=== PATIENT | female | born 1990 | race Hispanic/Latino ===

== ENCOUNTER 2020-02-11 11:26 | Emergency (ER) | payer OTHER ==
[2020-02-11] MEDS ORDERED: NA CHLORIDE 0.9% 1,000 ML ONE (11:45)
[2020-02-11 11:51] LABS: Absolute Lymphocytes (CBC) 2.2 K/uL (0.7-4.9); Basophils % 0.7 % (0-1.3); Lymphocytes % 38.3 % (15.3-44.8); MPV 7.8 fL (7.6-11.3); RBC Red Blood Cell Count 4.23 M/uL (3.86-4.86)
[2020-02-11 12:00] LABS: Protime INR 0.86
[2020-02-11 12:14] LABS: ALT/SGPT 43 U/L (12-78); AST/SGOT 22 U/L (15-37); Albumin 3.2 g/dL (3.4-5.0); Alkaline Phosphatase 75 U/L (45-117); BUN Blood Urea Nitrogen 11 mg/dL (7-18); Bicarbonate 25 mmol/L (21-32); Bilirubin Direct < 0.1 mg/dL (0-0.2); Bilirubin Total 0.1 mg/dL (0.2-1.0); Glucose Level 142 mg/dL (74-106); Protein, Total 7.1 g/dL (6.4-8.2); Sodium Level 140 mmol/L (136-145)
[2020-02-11 12:34] LABS: Urine Blood 3+ (NEG); Urine Glucose 1+ (NEG); Urine Protein 2+ (NEG); Urine pH 5.5 (5.0-7.0)
--- NOTE | 2020-02-11 12:38 | EDPHYS ---
Physician Documentation [facility] – [place], [place] Name: Nikole Lopez Age: 29 yrs Sex: Female : 1990 Arrival Date: 02/11/2020 Time: 11:27 Bed 6 Private MD: ED Physician Srinivasan Magana HPI: 02/10 11:37 This 29 yrs old Female presents to ER via EMS with complaints of Syncope. katie 11:37 The patient has experienced near-syncope. Onset: The symptoms/episode began/occurred katie just prior to arrival. Duration: This was a single episode. Context: the episode(s) was witnessed, by a bystander. Associated injury: The patient did not suffer any apparent associated injury. Associated signs and symptoms: Pertinent positives: dizziness. Current symptoms: Currently, the patient is not experiencing any symptoms. The patient has not experienced similar symptoms in the past. OBIEE ARCHITECT: 11:34 LMP 02/11/2020 jl7 Historical: - Allergies: 11:34 No Known Allergies; jl7 - Home Meds: 11:34 metformin 500 mg oral tab 2 tabs [Active]; jl7 - PMHx: 11:34 Diabetes - NIDDM; jl7 - Immunization history:: Adult Immunizations unknown. - Social history:: Smoking status: Patient denies any tobacco usage or history of. - Family history:: not pertinent. ROS: 11:37 Constitutional: Negative for fever, chills, and weight loss, Eyes: Negative for injury, katie pain, redness, and discharge, ENT: Negative for injury, pain, and discharge, Neck: Negative for injury, pain, and swelling, Cardiovascular: Negative for chest pain, palpitations, and edema, Respiratory: Negative for shortness of breath, cough, wheezing, and pleuritic chest pain, Abdomen/GI: Negative for abdominal pain, nausea, vomiting, diarrhea, and constipation, Back: Negative for injury and pain, : Negative for injury, bleeding, discharge, and swelling, MS/Extremity: Negative for injury and deformity, Skin: Negative for injury, rash, and discoloration, Psych: Negative for depression, anxiety, suicide ideation, homicidal ideation, and hallucinations, Allergy/Immunology: Negative for hives, rash, and allergies, Endocrine: Negative for neck swelling, polydipsia, polyuria, polyphagia, and marked weight changes, Hematologic/Lymphatic: Negative for swollen nodes, abnormal bleeding, and unusual bruising. 11:37 Neuro: Positive for dizziness, near syncope, weakness. Exam: 11:37 Constitutional: This is a well developed, well nourished patient who is awake, alert, katie and in no acute distress. Head/Face: Normocephalic, atraumatic. Eyes: Pupils equal round and reactive to light, extra-ocular motions intact. Lids and lashes normal. Conjunctiva and sclera are non-icteric and not injected. Cornea within normal limits. Periorbital areas with no swelling, redness, or edema. ENT: Nares patent. No nasal discharge, no septal abnormalities noted. Tympanic membranes are normal and external auditory canals are clear. Oropharynx with no redness, swelling, or masses, exudates, or evidence of obstruction, uvula midline. Mucous membranes moist. Neck: Trachea midline, no thyromegaly or masses palpated, and no cervical lymphadenopathy. Supple, full range of motion without nuchal rigidity, or vertebral point tenderness. No Meningismus. Chest/axilla: Normal chest wall appearance and motion. Nontender with no deformity. No lesions are appreciated. Cardiovascular: Regular rate and rhythm with a normal S1 and S2. No gallops, murmurs, or rubs. Normal PMI, no JVD. No pulse deficits. Respiratory: Lungs have equal breath sounds bilaterally, clear to auscultation and percussion. No rales, rhonchi or wheezes noted. No increased work of breathing, no retractions or nasal flaring. Abdomen/GI: Soft, non-tender, with normal bowel sounds. No distension or tympany. No guarding or rebound. No evidence of tenderness throughout. Back: No spinal tenderness. No costovertebral tenderness. Full range of motion. Female : Normal external genitalia. Skin: Warm, dry with normal turgor. Normal color with no rashes, no lesions, and no evidence of cellulitis. MS/ Extremity: Pulses equal, no cyanosis. Neurovascular intact. Full, normal range of motion. Neuro: Awake and alert, GCS 15, oriented to person, place, time, and situation. Cranial nerves II-XII grossly intact. Motor strength 5/5 in all extremities. Sensory grossly intact. Cerebellar exam normal. Normal gait. Psych: Awake, alert, with orientation to person, place and time. Behavior, mood, and affect are within normal limits. 11:37 Musculoskeletal/extremity: Extremities: all appear grossly normal, with no appreciated pain with palpation, ROM: no acute changes, intact in all extremities, full active range of motion, full passive range of motion, Circulation is intact in all extremities. Sensation intact. Compartment Syndrome exam of affected extremity: is normal. Tendon exam: specific tendon testing normal through active and passive range of motion DVT Exam: No signs of deep vein thrombosis. no pain, no swelling, no tenderness, negative Homans' sign noted on exam, no appreciated bluish discoloration, no erythema, no increased warmth. 11:37 Neuro: Orientation: is normal, appropriate for stated age, no acute changes, Mentation: is normal, appropriate for stated age, no acute changes, Memory: is normal, appropriate for stated age, no acute changes, Cranial nerves: grossly normal, is grossly normal based on the patient's age, no acute changes, Cerebellar function: is grossly normal, is grossly normal based on the patient's age, no acute changes, Motor: moves all fours, Sensation: no obvious gross deficits, appropriate no acute changes, Gait: not applicable seizure activity, is not displayed by the patient. 11:43 ECG was reviewed by the Attending Physician. [facility] 12:09 Neuro: Babinski testing is normal. [facility] Vital Signs: 11:22 BP 85 / 35 LA Supine; Pulse 67; Resp 16 S; Temp 98.2(O); Pulse Ox 100% on R/A; Weight jl7 68.04 kg (R); 11:25 BP 98 / 55 RA Supine; jl7 12:45 BP 104 / 56; Pulse 61; Resp 16; Pulse Ox 100% ; jl7 13:20 BP 103 / 69 Supine; jl7 13:21 BP 109 / 78 Standing; jl7 MDM: 11:30 Patient medically screened. pm1 11:40 Data reviewed: vital signs, nurses notes, lab test result(s), EKG. Data interpreted: [facility] monitoring analyst: rate is 67 beats/min, Pulse oximetry: on room air is 100 %. Test interpretation: by ED physician or midlevel provider: ECG, plain radiologic studies. Counseling: I had a detailed discussion with the patient and/or guardian regarding: the historical points, exam findings, and any diagnostic results supporting the discharge/admit diagnosis, lab results, the need for outpatient follow up, for definitive care. Response to treatment: the patient's symptoms have markedly improved after treatment. 11:46 Differential Diagnosis: cardiac arrhythmia, drug effect, , vasovagal episode. [facility] 11:53 ED course: fells better, will fu, control blood sugars, return to the er if symptoms katie worsen. 02/10 11:37 Order name: Acetaminophen; Complete Time: 12:36 [facility] 02/10 11:37 Order name: Basic Metabolic Panel; Complete Time: 12:36 katie 02/10 11:37 Order name: CBC with Diff; Complete Time: 12:36 katie 02/10 11:37 Order name: ETOH Level; Complete Time: 12:36 [facility] 02/10 11:37 Order name: Hepatic Function; Complete Time: 12:36 katie 02/10 11:37 Order name: PT-INR; Complete Time: 12:36 katie 02/10 11:37 Order name: Urine Test (obtain specimen); Complete Time: 13:12 [facility] 02/10 11:37 Order name: Ptt, Activated; Complete Time: 12:36 katie 02/10 11:37 Order name: Salicylate; Complete Time: 12:36 katie 02/10 11:37 Order name: Urine Drug Screen [facility] 02/10 11:37 Order name: EKG; Complete Time: 11:38 katie 02/10 12:26 Order name: Urine Dipstick--Ancillary (enter results); Complete Time: 12:36 tt3 02/10 12:26 Order name: Urine --Ancillary (enter results); Complete Time: 12:36 tt3 02/10 11:37 Order name: EKG - Nurse/Tech; Complete Time: 12:05 katie 02/10 11:37 Order name: IV Saline Lock; Complete Time: 12:05 katie 02/10 11:37 Order name: Labs collected and sent; Complete Time: 12:05 katie 02/10 11:37 Order name: Urine Dipstick-Ancillary (obtain specimen); Complete Time: 13:12 katie 02/10 12:36 Order name: Orthostatics; Complete Time: 13:21 katie EC:43 Rate is 58 beats/min. Rhythm is regular. QRS [place] is Normal. MA interval is normal. QRS katie interval is normal. QT interval is normal. No Q waves. T waves are Normal. No ST changes noted. Clinical impression: Normal ECG, Sinus bradycardia, and No evidence of ischemia. Interpreted by me. Reviewed by me. Administered Medications: 11:45 Drug: NS 0.9% 1000 ml Route: IV; Rate: 1 bolus; Site: right antecubital; jl7 12:50 Follow up: IV Status: Completed infusion; IV Intake: 1000ml jl7 13:04 Follow up: Response: No adverse reaction; IV Intake: 1000ml jl7 Disposition: 02/11/20 12:37 Discharged to Home. Impression: Syncope and collapse - near, Type 2 diabetes mellitus, Anemia, unspecified. - Condition is Stable. - Discharge Instructions: Anemia, Nonspecific, Type 2 Diabetes Mellitus, Diagnosis, Adult, Near-Syncope, Syncope, Weakness, Near-Syncope, Annk-xf-Wnlu, Syncope, Mvdu-vo-Dvuz, Weakness, Cmfx-ig-Embf, Type 2 Diabetes Mellitus, Diagnosis, Adult, Eupv-ox-Rfir, Vasovagal Syncope, Adult. - Medication Reconciliation Form, Thank You Letter, Antibiotic Education, Prescription Opioid Use form. - Follow up: Private Physician; When: 2 - 3 days; Reason: Recheck today's complaints, Continuance of care, Re-evaluation by your physician. - Problem is new. - Symptoms have improved. Signatures: Dispatcher [employer] EDMS Srinivasan Magana MD MD cha Marinas, Patrick, [employer] pm1 Stuart Solo RN RN jl7 Corrections: (The following items were deleted from the chart) 12:37 12:37 02/11/2020 12:37 Discharged to Home. Impression: Syncope and collapse - near; katie Type 2 diabetes mellitus. Condition is Stable. Discharge Instructions: Type 2 Diabetes Mellitus, Diagnosis, Adult, Near-Syncope, Syncope, Weakness, Near-Syncope, Zuet-qi-Mjkd, Syncope, Fsbz-ux-Tlxr, Weakness, Duhv-yj-Ttjp, Type 2 Diabetes Mellitus, Diagnosis, Adult, Rcvb-yk-Jzte, Vasovagal Syncope, Adult. Forms are Medication Reconciliation Form, Thank You Letter, Antibiotic Education, Prescription Opioid Use. Follow up: Private Physician; When: 2 - 3 days; Reason: Recheck today's complaints, Continuance of care, Re-evaluation by your physician. Problem is new. Symptoms have improved. katie 13:26 12:37 02/11/2020 12:37 Discharged to Home. Impression: Syncope and collapse - near; jl7 Type 2 diabetes mellitus; Anemia, unspecified. Condition is Stable. Discharge Instructions: Type 2 Diabetes Mellitus, Diagnosis, Adult, Near-Syncope, Syncope, Weakness, Near-Syncope, Gtbr-sh-Lvzw, Syncope, Oqrm-zt-Mhew, Weakness, Zlhg-nu-Bmkm, Type 2 Diabetes Mellitus, Diagnosis, Adult, Pemd-mk-Kxln, Vasovagal Syncope, Adult. Forms are Medication Reconciliation Form, Thank You Letter, Antibiotic Education, Prescription Opioid Use. Follow up: Private Physician; When: 2 - 3 days; Reason: Recheck today's complaints, Continuance of care, Re-evaluation by your physician. Problem is new. Symptoms have improved. katie
--- NOTE | 2020-02-11 12:38 | ER ---
Nurse's Notes [facility] Name: Nikole Lopez Age: 29 yrs Sex: Female : 1990 Arrival Date: 02/11/2020 Time: 11:27 Bed 6 Private MD: Diagnosis: Syncope and collapse-near;Type 2 diabetes mellitus;Anemia, unspecified Presentation: 02/10 11:22 Chief complaint: EMS states: syncopal episode while in the bathroom, BP on arrival jl7 100/62, had another episode in route, BP was 36/19 and she lost consciousness. Coronavirus screen: Proceed with normal triage. Patient denies a cough. Patient denies shortness of breath or difficulty breathing. Patient denies measured and/or subjective temperature greater than 100.4F prior to today's visit. Patient denies travel on a cruise ship or to a country the [facility] currently lists as an affected area. Patient denies contact with known and/or suspected case of COVID-19. Ebola Screen: No symptoms or risks identified at this time. 11:22 Method Of Arrival: EMS: [facility] 11:25 Initial Sepsis Screen: Does the patient meet any 2 criteria? Systolic BP < 90 mmHg. jl7 Mean Arterial Pressure (MAP) < 65. Does the patient have a suspected source of infection? No. Patient's initial sepsis screen is negative. Risk Assessment: Do you want to hurt yourself or someone else? Patient reports no desire to harm self or others. Onset of symptoms was February 11, 2020. Care prior to arrival: Glucose check: 120. 11:25 Acuity: DAMIEN 2 jl7 Triage Assessment: 11:34 General: Appears in no apparent distress. uncomfortable, Behavior is calm, cooperative, jl7 appropriate for age. Pain: Denies pain. Neuro: Level of Consciousness is awake, alert, obeys commands, Oriented to person, place, time, situation, Reports a syncopal episode. Cardiovascular: Patient's skin is warm and dry. Respiratory: Airway is patent Respiratory effort is even, unlabored, Respiratory pattern is regular, symmetrical. Derm: Skin is pink, warm \T\ dry. Musculoskeletal: No signs and/or symptoms reported regarding the musculoskeletal system. 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 - Social history:: Smoking status: Patient denies any tobacco usage or history of. - Family history:: not pertinent. Screenin:36 Abuse screen: Denies threats or abuse. Denies injuries from another. Nutritional jl7 screening: No deficits noted. Tuberculosis screening: No symptoms or risk factors identified. Fall Risk No secondary diagnosis (0 pts). IV access (20 points). Ambulatory Aid- None/Bed Rest/Nurse Assist (0 pts). Gait- Weak (10 pts.). Mental Status- Oriented to own ability (0 pts). Assessment: 11:40 General: See triage assessment. jl7 12:40 Reassessment: Patient appears in no apparent distress at this time. Patient and/or jl7 family updated on plan of care and expected duration. Pain level reassessed. Patient is alert, oriented x 3, equal unlabored respirations, skin warm/dry/pink. Patient denies pain at this time. Patient states feeling better. Vital Signs: 11:22 BP 85 / 35 LA Supine; Pulse 67; Resp 16 S; Temp 98.2(O); Pulse Ox 100% on R/A; Weight jl7 68.04 kg (R); 11:25 BP 98 / 55 RA Supine; jl7 12:45 BP 104 / 56; Pulse 61; Resp 16; Pulse Ox 100% ; jl7 13:20 BP 103 / 69 Supine; jl7 13:21 BP 109 / 78 Standing; jl7 ED Course: 11:27 Patient arrived in ED. jl7 11:30 Karri Garcia NP is PHCP. pm1 11:30 Srinivasan Magana MD is Attending Physician. pm1 11:33 Triage completed. jl7 11:34 Arm band placed on right wrist. jl7 11:35 Patient has correct armband on for positive identification. Placed in gown. Bed in low jl7 position. Call light in reach. Side rails up X2. fish net maker on. Pulse ox on. NIBP on. Warm blanket given. 11:35 Inserted saline lock: 20 gauge in right antecubital area, using aseptic technique. jl7 12:05 Solo, Jahala, RN is Primary Nurse. jl7 13:22 No provider procedures requiring assistance completed. IV discontinued, intact, jl7 bleeding controlled, No redness/swelling at site. Pressure dressing applied. Administered Medications: 11:45 Drug: NS 0.9% 1000 ml Route: IV; Rate: 1 bolus; Site: right antecubital; jl7 12:50 Follow up: IV Status: Completed infusion; IV Intake: 1000ml jl7 13:04 Follow up: Response: No adverse reaction; IV Intake: 1000ml jl7 Intake: 12:50 IV: 1000ml; Total: 1000ml. jl7 13:04 IV: 1000ml; Total: 2000ml. jl7 Outcome: 12:37 Discharge ordered by . katie 13:26 Discharged to home ambulatory. jl7 13:26 Condition: stable 13:26 Discharge instructions given to patient, Instructed on discharge instructions, follow up and referral plans. Demonstrated understanding of instructions, follow-up care. 13:26 Patient left the ED. jl7 Signatures: Srinivasan Magana MD MD cha Marinas, Patrick, DRAW STRING KNOTTER DRAW STRING KNOTTER pm1 Stuart Solo, RN RN jl7
[2020-02-11 12:42] LABS: Barbiturates NEGATIVE (NEGATIVE); Benzodiazepines NEGATIVE (NEGATIVE); Cocaine NEGATIVE (NEGATIVE); METHAMPHETAM NEGATIVE (NEGATIVE); Methadone NEGATIVE (NEGATIVE); Opiates NEGATIVE (NEGATIVE); Phencyclidine NEGATIVE (NEGATIVE); THC Cannibis NEGATIVE (NEGATIVE)
[2020-02-11 13:35] VITALS: O2SAT 100
[2020-02-11 13:37] VITALS: BP 109/78
--- NOTE | 2020-02-12 18:48 | EKG ---
Test Date: 2020-02-11 Test Time: 11:37:56 Health And Wellness Sales Consultant: DUANE MEASUREMENT RESULTS: Intervals: Rate: 58 DE: 142 QRSD: 80 QT: 378 QTc: 371 [place]: P: 47 DE: 142 QRS: 82 T: 42 INTERPRETIVE STATEMENTS: Sinus bradycardia with premature atrial complexes Otherwise normal ECG No previous ECG available for comparison Electronically Signed On 02-12-20 18:44:38 CDT by Que Moctezuma
== END 2020-02-11 13:26 | disposition home or self-care (01) ==
LOC: ER 11:26
DX: R55 Syncope and collapse (principal); E11.9 Type 2 diabetes mellitus without complications; D64.9 Anemia, unspecified
CPT/HCPCS: 93005; 85025; 80048; 36415; 80320; 80329 ×2; 81025; 85610; 80076; 80307 ×8; 85730; 81003; 96360; 99284; J7030

== ENCOUNTER 2020-02-23 11:18 | Emergency (ER) | payer OTHER ==
--- OUTSIDE RECORDS SUMMARY | 2020-02-23 11:30 | XMS REPORT | Clinical Summary ---
:1990 Author Organization [facility] [facility] Address [address] [place] [id number] Care Team Providers Name Role Phone Robbie Almaguer MD Primary Care Provider Allergies No Known Allergies Medications Not on file Active Problems Not on file Social History Tobacco Use Types Packs/Day Years Used Date Current Every Day Smoker Cigarettes 1 Smokeless Tobacco: Never Used Alcohol Use Drinks/Week oz/Week Comments Yes occasionally Sex Assigned at Date Recorded Not on file Job Start Date Occupation Industry Not on file Not on file Not on file Travel History Travel Start Travel End No recent travel history available. 

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
--- OUTSIDE RECORDS SUMMARY | 2020-02-23 11:32 | XMS REPORT ---
:1990 Author Organization [facility] t Address [address] [place] [address] Care Team Providers Name Role Phone Robbie Almaguer MD Primary Care Physician Problems Condition Condition Condition Status Onset Resolution Last Treating Co mments Source Name Details Category Date Date Treatment Clinician Date Candidiasi Candidiasi Problem Active 2019-0 [facility] s of s of 2-04 da vagina Vagina 00:00: Medical 00 Group Type II Type II Problem Active 0 [place] diabetes Diabetes 2-04 da mellitus Mellitus 00:00: Medica l uncontroll Uncontroll 00 Gr oup ed ed Staphyloco Staphyloco Problem Active 2019-0 [facility] ccal ccal 2-04 da infection Infection 00:00: Medi nuno of skin of Skin 00 Group Depressive Depressive Problem Active 2019-0 [facility] disorder Disorder 1-15 da 00:00: Medical 00 Group Problem Active 2017-10 [facility] depression Depression 0-08 da 00:00: Medical 00 Group Exposure Exposure Problem Active [place] to to 3-21 da tuberculos Tuberculos 00:00: Me dical is is 00 Group Elevated Elevated Problem Active [place] liver Liver 1-30 da enzymes Enzymes 00:00: Medical level Level 00 Group Seizure Seizure Problem Active [place] 4-11 da 00:00: Medical 00 Group Uterine Uterine Problem Active [place] scar from Scar from 3 da previous Previous 00:00: Medica l surgery in Surgery in 00 Gr oup , , childbirth Childbirth and the and the puerperium Puerperium with with problem Problem History of History of Problem Active [facility] migraine Migraine 3 da 00:00: Medical 00 Group History of History of Problem Active [facility] severe Severe 12-10 da pre-eclamp Pre-eclamp 00:00: Me dical constance constance 00 Group LEG Diagnosis Active 2013-02-08 WEAKNESS 4-04 15:06:00 [place] LEG 00:00: Medical WEAKNESS 00 Center Active 01/05/2013 [facility] FELL FROM Diagnosis Active 2013-01-06 STANDING 4-04 16:44:00 [place] HIT HER FELL 00:00: Medical HEAD AT FROM 00 Center [facility] STANDING HIT HER HEAD AT [facility] Active 01/05/2013 [facility] Type 2 Type 2 Problem Active [place] diabetes Diabetes da mellitus Mellitus Medica l Group Polycystic Polycystic Problem Active M [facility] ovaries Ovaries da Medical Group Migraine Migraine Problem Active [place] [facility] Melena Melena Problem Active [facility] Chronic Chronic Problem Active [place] pelvic Pelvic da pain of Pain of Medical female Female Group Syncope Syncope Problem Active [facility] Fatigue Fatigue Problem Active [facility] Poor Poor Problem Active [place] short-term Short-term da memory Memory Medical Group Hyperglyce Hyperglyce Problem Active M [facility] liv liv da Medical Group Dark Dark Problem Active [place] stools Stools da Medical Group Syncope Problem Resolve 2013-01-09 d 21:02:31 [place] [facility] Resolved Problem 01/09/2013 [facility] MALAISE Diagnosis Active 2013-02-08 AND 15:06:00 [place] FATIGUE MALAISE Medica l NEC AND Center FATIGUE NEC Active [facility] Allergies, Adverse Reactions, Alerts This patient has no known allergies or adverse reactions. Social History Social Habit Start Date Stop Date Quantity Comments Source History of tobacco Cigarette Smoker [place] use Jainism Sex Assigned At [place] Jainism Cigarettes smoked 2018-04-24 2018-04-24 [place] current (pack per 00:00:00 00:00:[address] day) - Reported Alcohol intake 2018-04-24 2018-04-24 Current drinker of [place] 00:00:00 00:00:00 alcohol (finding) Methodi [facility] Alcohol Comment 2018-04-24 2018-04-24 occasionally [place] 00:00:00 00:00:00 Jainism Smoking Status Start Date Stop Date Source Current every day smoker 2018-04-24 00:00:00 Lane[place] oliveira Jainism Medications Ordered Filled Start Stop Current Ordering Indication Dosage Frequency Signature Comments Components Source Medication Medication Date Date Medication? Clinician (SIG) Name Name acetaminoph No Alpa 650 mg, [facility] 01-06 Nirmala 20.3 mL, [place] 22:34: Blayne Route: PO, Medic al 00 Drug form: Center LIQ, Q4H, Dosing Weight 86.364, kg, PRN Pain 1-3/Temp > 100.4 F, Start date: 01/06/13 17:34:00, Duration: 30 day, Stop date: 02/05/13 17:33:00 droperidol No Jenna 1.25 mg, 01-06 [place] 0.5 mL, [place] 06:59: Route: Medical 00 IVP, Drug Center form: INJ, ONCE, Dosing Weight 86.364, kg, Start date: 01/06/13 1:59:00, Stop date: 01/06/13 1:59:00 droperidol No Jenna 1.25 mg, -05 [place] Route: [place] 06:40: IVP, ONCE, Medical 00 Dosing Center Weight 86.364, kg, PRN Nausea & Vomiting, Start date: 01/06/13 1:40:00 citalopram citalopram No citalopram [place] 20 mg 20 mg 20 mg da tablet Take tablet Take tablet Medical 1 tablet 1 tablet Take 1 Group every day every day tablet by oral by oral every day route. route. by oral route. Estarylla Estarylla No Estarylla [place] 0.25 mg-35 0.25 mg-35 0.25 mg-35 da mcg tablet mcg tablet mcg tablet Medical Take 1 Take 1 Take 1 Group tablet tablet tablet every day every day every day by oral by oral by oral route. route. route. metformin metformin No metformin [place] ER 500 mg ER 500 mg ER 500 mg da tablet,exte tablet,exte tablet,ext Medical nded nded ended Group release 24 release 24 release 24 hr Take 2 hr Take 2 hr Take 2 tablets tablets tablets every day every day every day by oral by oral by oral route for route for route for 30 days. 30 days. 30 days. topiramate topiramate No topiramate [place] 25 mg 25 mg 25 mg da tablet Take tablet Take tablet Medical 1 tablet 1 tablet Take 1 Group every day every day tablet by oral by oral every day route. route. by oral route. True Metrix True Metrix No True M [facility] Glucose Glucose Metrix da Meter Meter Glucose Medical Meter Group True Metrix True Metrix No True M [facility] Glucose Glucose Metrix da Test Strip Test Strip Glucose Medical USE TO TEST USE TO TEST Test Strip Group TWICE DAILY TWICE DAILY USE TO TEST TWICE DIRECTED. DIRECTED. DAILY DIRECTED. Immunizations Ordered Immunization Filled Immunization Date Status Commen ts Source Name Name influenza, influenza, 2018-07-11 Completed [place] recombinant, recombinant, 13:06:00 Medical Gr oup quadrIvalent,injecta quadrIvalent,inject ble, preservative able, preservative free free Vital Signs Vital Name Observation Time Observation Value Comments Source BP Diastolic 2019-12-12 00:00:00 84 mm[Hg] [facility] Height 2019-12-12 00:00:00 62 [in_i] [facility] BMI (Body Mass 2019-12-12 00:00:00 28.5 kg/m2 [facility] Medical Index) Group BP Systolic 2019-12-12 00:00:00 118 mm[Hg] [facility] Body Weight 2019-12-12 00:00:00 2496 [oz_av] [facility] BP Diastolic 2019-11-07 00:00:00 74 mm[Hg] [facility] Height 2019-11-07 00:00:00 62 [in_i] [facility] BMI (Body Mass 2019-11-07 00:00:00 29.1 kg/m2 [facility] Medical Index) Group BP Systolic 2019-11-07 00:00:00 108 mm[Hg] [facility] Body Weight 2019-11-07 00:00:00 2544 [oz_av] [facility] BP Diastolic 2019-11-03 00:00:00 85 mm[Hg] [facility] Height 2019-11-03 00:00:00 62 [in_i] [facility] BMI (Body Mass 2019-11-03 00:00:00 28.9 kg/m2 [facility] Medical Index) Group BP Systolic 2019-11-03 00:00:00 120 mm[Hg] [facility] Body Weight 2019-11-03 00:00:00 2528 [oz_av] [facility] BP Diastolic 2018-10-18 00:00:00 83 mm[Hg] [facility] Height 2018-10-18 00:00:00 62 [in_i] [facility] BMI (Body Mass 2018-10-18 00:00:00 32.4 kg/m2 [facility] Medical Index) Group BP Systolic 2018-10-18 00:00:00 106 mm[Hg] [facility] Body Weight 2018-10-18 00:00:00 177 [lb_av] [facility] Heart Rate 2013-01-07 11:55:00 [facility] Systolic (mm Hg) 2013-01-07 11:55:00 [facility] Respitory Rate 2013-01-07 11:55:00 [facility] Temperature Oral (F) 2013-01-07 11:55:00 97.6 F [facility] Diastolic (mm Hg) 2013-01-07 11:55:00 [facility] Diastolic (mm Hg) 2013-01-07 08:00:00 [facility] Systolic (mm Hg) 2013-01-07 08:00:00 [facility] Respitory Rate 2013-01-07 08:00:00 [facility] Center Temperature Oral (F) 2013-01-07 08:00:00 97.9 F [facility] Heart Rate 2013-01-07 08:00:00 [facility] Temperature Oral (F) 2013-01-07 04:02:00 98.4 F [facility] Diastolic (mm Hg) 2013-01-07 04:02:00 [facility] Systolic (mm Hg) 2013-01-07 04:02:00 [facility] Respitory Rate 2013-01-07 04:02:00 [facility] Heart Rate 2013-01-07 04:02:00 [facility] Weight 2013-01-06 23:20:00 [facility] Height 2013-01-06 23:20:00 157.48 cm [facility] Height 2013-01-06 04:57:00 157.48 cm [facility] Weight 2013-01-06 04:57:00 [facility] Weight 2013-01-06 04:51:00 [facility] Height 2013-01-06 04:51:00 157.48 cm [facility] Procedures Procedure Date / Time Performed Performing Clinician Terry e Caesarean Section 2017-06-22 00:00:00 [facility] Caesarean Section 2012-06-02 00:00:00 [facility] section [facility] Plan of Care Planned Activity Planned Date Details Comments Source Future Scheduled Test 2020-05-04 INFLUENZA VACCINE [facility] Jainism 00:00:00 [code = INFLUENZA VACCINE] Diagnostic Test 2019-12-12 HbA1c (hemoglobin [facility] Pending 00:00:00 A1c), blood [code = Group HbA1c (hemoglobin A1c), blood] Diagnostic Test 2019-12-12 [facility] 00:[facility]:00 [code = microalbumin, Group urine] Diagnostic Test 2019-12-12 CMP, serum or plasma Cherry zenaida Medical Pending 00:00:00 [code = CMP, serum or Group plasma] Future Scheduled Test 2012 Screening for [place] [facility] 00:00:00 malignant neoplasm of cervix (procedure) [code = 364933537] Future Scheduled Test 2001 DIABETIC FOOT EXAM Vamshi Abarca 00:00:00 [code = DIABETIC FOOT EXAM] Future Scheduled Test 2001 URINE MICROALBUMIN Vamshi Jainism 00:00:00 [code = URINE MICROALBUMIN] Future Scheduled Test 1991 DIABETIC RETINAL EYE [facility] Jainism 00:00:00 EXAM [code = DIABETIC RETINAL EYE EXAM] Future Appointment 2020-03-13 Toni Moore [facility] 00:00:[address] [phone] Encounters Start End Encounter Admission Attending Care Care Encounter Source Date/Time Date/Time Type Type Clinicians Facility Department ID 2019-12-12 2019-12-12 Johnny MERCADO [place] - [id number] [place] [facility] 00:00:00 00:00:00 MD Apple: [facility] [address] [place] [phone] , Ph. 2019-11-07 2019-11-07 Johnny Wolfe MM [place] - [id number] [facility] 00:00:00 00:00:00 MD Apple: [facility] [address] [place] [phone] , Ph. 2019-11-03 2019-11-03 Tahmina [facility] [place] - [id number] M [facility] 00:00:00 00:00:00 Beryl Lassiter [facility] Medical ONLINE EDITOR: [address] [place] [phone] , Ph. 2018-10-18 2018-10-18 Tadeo [facility] [place] - [id number] M [facility] 00:00:00 00:00:00 Discovery benson Nicholson MD: [address] [facility] [phone] , Ph. [phone] 2013-01-06 2013-01-07 OU MHIEALT [facility] [id number] MH 16:38:00 12:20:00 Medical 94 [facility] Results Test Description Test Time Test Comments Results Result Sour e Comments CHEST 1 VIEW 2017-02-01 [place] [address] 20:16:00 [place], [place] [address]FYSJERUFVK IMAGING REPORTPatient Name: GERONIMO LIM RDate of Service: [id number]: 25 Sex: F Order #: [id number] Room: REDWOOD LLCB: 1990 X-Ray Number: [id number] Record Number: [id number] Hospital Number: [id number] Physician: CHAS KAMOrdering Physician: DIMA CHAPMAN PORTABLE CHEST:CLINICAL HISTORY:, Cough, fever and congestionTECHNIQUE: One viewFINDINGS: The heart and vascularity are within normal limits and the lungsare clear.The bony thorax is intact.Impression: Normal chestElectronically Signed By: Joselito Adams M.D., 02/16/2017 8:14 PMLegally authenticated by RAJENDRA Wolfe 2017-02-16 20:14:30 CHEMISTRY See Note [facility] [place] 5 3*NA*(01/06/2013 Medical 17:47:55 12:47:55) Center CHEMISTRY Negative [facility] [place] 5 *NA*(01/06/2013 Medical 17:47:55 12:47:55) Center CHEMISTRY Negative [facility] [place] 5 *NA*(01/06/2013 Medical 17:47:55 12:47:55) Center CHEMISTRY Negative MH [place] 5 *NA*(01/06/2013 Medical 17:47:55 12:47:55) Center CHEMISTRY Negative MH [place] 5 *NA*(01/06/2013 Medical 17:47:55 12:47:55) Center CHEMISTRY Negative MH [place] 5 *NA*(01/06/2013 Medical 17:47:55 12:47:55) Center CHEMISTRY Negative MH [place] 5 *NA*(01/06/2013 Medical 17:47:55 12:47:55) Center CHEMISTRY Negative MH [place] 5 *NA*(01/06/2013 Medical 17:47:55 12:47:55) Center CHEMISTRY 24 [facility] [place] 5 Medical 17:47:45 Center CHEMISTRY -2 [facility] 5 Medical 17:47:45 Center CHEMISTRY 53 [facility] 5 Medical 17:47:45 Center CHEMISTRY 84.8 [facility] 5 Medical 17:47:45 Center CHEMISTRY 37.0 [facility] 5 Medical 17:47:45 Center CHEMISTRY 7.34 [facility] 5 Medical 17:47:45 Center CHEMISTRY 44 [facility] 5 Medical 17:47:45 [place] HEMATOLOGY 4.3 [facility] 5 Medical 17:47:41 [place] HEMATOLOGY 2013-01-06 17:47:41 Test Item Value Reference Range Interpretation Comme nts ACT (TEG) (test code = ACT (TEG)) 113 s 86-118 N [facility]SgqvecDBAUIXOTKA2657-52-25 17:47:41 Test Item Value Reference Range Interpretation Comments Split Point (test code = Split Point) 0.6 [facility] 17:47:41 Test Item Value Reference Range Interpretation Comments R-time (test code = R-time) 0.7 min 0.4-0.7 N [facility] 17:47:41 Test Item Value Reference Range Interpretation Comments K-time (test code = K-time) 0.8 min 0.6-2.3 N [facility]-04-05 17:47:4114.7[facility] TBZYZNUNOF2096-28-21 17:47:41 Test Item Value Reference Range Interpretation Comments Angle (test code = Angle) 79 degrees 64-80 N [facility]ressPbwykwXBHPTVJJZA3837-95-24 17:47:41 Test Item Value Reference Range Interpretation Comments Max Amp (test code = Max Amp) 75 mm 52-71 H [facility]ressIkazfsMQMBJNMJE5795-55-61 05:16:00Negative (01/06/2013 00:16:00)[facility]ressLdhqnaVRLWBLYUOQ4036-90-92 05:16:00Negative (01/06/2013 00:16:00)[facility]ressJrpgagMFNGNGPQNQ5886-31-90 05:16:00 Negative (01/06/2013 00:16:00)[facility]ressFddzdyIFJJFFZCMO6712-58-22 05:16:000.2[facility] HospitalQrondyJWSHIJXIUM4527-09-41 05:16:00Negative (01/06/2013 00:16:00)[facility]ressPtbkrcQBCCMMQKPB5490-77-57 05:16:00 Test Item Value Reference Range Interpretation Comments UA Spec Grav (test code = UA Spec 1.020 1 N Grav) [facility]2013-04-05 05:16:00Clear (01/06/2013 00:16:00) [facility]2013-04-05 05:16:00Yellow *NA*(01/06/2013 00:16:00)[facility]2013-04-05 05:16:00Performed (01/06/2013 00:16:00)[facility]2013-04-05 05:16:000-2 /HPF (01/06/2013 00:16:00)[facility]2013-04-05 05:16:00 Occasional /LPF (01/06/2013 00:16:00)[facility]2013-04-05 05:16:000-2 /HPF (01/06/2013 00:16:00)[facility]06 05:16:00Few /HPF (01/06/2013 00:16:00)[facility] SJEWIYEEGG3933-72-79 05:16:00 Test Item Value Reference Range Interpretation Comments UA pH (test code = UA pH) 6.0 1 5.0-8.0 N [place] [facility] 05:16:00Negative (01/06/2013 00:16:00)[facility]2013-04-05 05:16:00Trace *ABN*(01/06/2013 00:16:00)[facility]2013-04-05 05:16:00 Negative *NA*(01/06/2013 00:16:00)[facility]2013-04-05 05:16:00Negative *NA*(01/06/2013 00:16:00)[facility] 2013-01-06 05:14:0016.1MTexas Orthopedic HospitalHwbhxcLZETIJFYB3977-18-70 05:14:0014[facility] CypressXgtoekFJQEARJSB6478-87-39 05:14:001.0[facility] FXEKWHRQT2953-01-17 05:14:003.9[facility] CypressFdzlxhTQPWUWFZI4688-55-01 05:14:82356QLH[facility] CypressJaugudTQFPMWYCE8665-46-95 05:14:0010[facility] CypressXnopnnCBAWKCIKT9010-57-43 05:14:000.7[facility] CypressCgrzpmLJNKOVHUS8939-75-06 05:14:19385QUHCA [facility] Healthcare North CypressRttnqjFCVJCJKKW2510-44-55 05:14:0096[facility] CypressMtcoffFUVFLAMXZ0379-43-76 05:14:[address] [place], [place] [address]RyqumgUDTRKYQOA2302-57-77 05:14:0024[facility] CypressLpduscYPONXBPGE8186-69-82 05:14:009.0[facility] CypressMfgbedEUUZHHCAJ1090-15-97 05:14:59939RNHCA [facility] CypressZhpgseBVYRSGOFR3892-19-97 05:14:36617FNHCA [facility] CypressKcsibnAQLJYRTUO1199-70-05 05:14:000.3MTexas Orthopedic HospitalOlyphnOBMRYHCYY1641-02-97 05:14:0019[facility] 2013-01-06 05:14:007.8[facility] CypressZbjvgcNIPILBLNL0807-38-64 05:14:003.9[facility] CypressUzittjHKMXHTWDR8077-30-99 05:14:0049[facility] NZMRDWZRSA3875-14-05 05:14:00 Test Item Value Reference Range Interpretation Comments PTT (test code = PTT) 29.6 s 22.9-35.8 N [facility] CypressEhzqbiPBHDAIVRGH2830-43-77 05:14:00 Test Item Value Reference Range Interpretation Comments PT (test code = PT) 12.3 s 12.0-14.7 N [facility] CypressOyguxqWYVLVYBSXF0120-46-41 05:14:000.89[facility] VXKHAHCHUA8165-85-39 05:14:0012.9[facility] CypressQiwxzwYAERDRHGZH5475-70-58 05:14:0010.9[facility] CypressRzkddjBJAUUNZHTM6489-32-26 05:14:004.59[facility] CypressXyisvkVGIBXHENOU9722-20-74 05:14:00 Test Item Value Reference Range Interpretation Comments MCH (test code = MCH) 28.1 pg 27.0-31.0 N [facility] CypressBoqlvkELERPFIBQR0311-50-00 05:14:0038.9[facility] HCHYVQJZGF4794-35-70 05:14:0084.7[facility] CypressVqfoaxDJPGSASHXD3503-99-36 05:14:007.9[facility] CypressGewqmwFBOAZWTIAM2278-52-26 05:14:0014.8[facility] CypressEgwwyyMYEJONXVIR6525-26-97 05:14:[address] [place], [place] [address]HEMATOLOGY 2013-01-06 05:14:44723VDHCA [facility] Healthcare North CypressAqmnuwQPKCHVRCFP9779-81-96 05:14:000.2MTexas Orthopedic HospitalFyzyacOZCCDDKNCJ4134-15-53 05:14:007.0[facility] QTJFTCNJZZ1108-25-21 05:14:000.6MTexas Orthopedic HospitalScjjgbIIQWGRKGEE7924-63-56 05:14:000.8[facility] CypressOmszlqKTLPHUSYKR6224-32-52 05:14:002.8[facility] CypressFtxaodZXJPBORNLL1154-66-58 05:14:000.[address] [place], [place] [address]HEMATOLOGY 2013-01-06 05:14:0064.2MTexas Orthopedic HospitalPwziryCFSWXEQIQL7132-94-00 05:14:002.0[facility] CypressAztvqdKAAZQYTXPO5133-21-27 05:14:0025.9[facility] DAVVLJZEHS4316-06-35 05:14:007.[address] [place], [place] [address]XwzoanLNMIXRDGC9691-06-48 05:01:004.2MTexas Orthopedic HospitalRgwedjMFNFITMVN1513-12-41 05:01:001.[address] [place] [address]
--- OUTSIDE RECORDS SUMMARY | 2020-02-23 11:33 | XMS REPORT | Encounter Summary ---
:1990 Author Care Team Providers Name Role Phone Eulogio Almaguer MD Primary Care Provider [phone] Tadeo Nicholson [employer] Worker [phone] Reason for Visit Follow Up Visit Instructions 1. Type II diabetes mellitus unc ontrolled True Metrix Glucose Test S trip HbA1c (hemoglobin A1c), bl ood microalbumin, urine CMP, serum or plasma 2. Depressive disorder learning about mood disord ers psychiatry referral Discussion Note: None recorded. Plan of Care Reminders Provider Appointments Return to on or around Jasmin Almaguer MD Office 03/13/2020 Lab HbA1C 12/12/2019 [place] (Hemoglobin a1C), [facility] (Labs) (X ray) 12/12/2019 [place] Microalbumin, Urine [facility] (Labs) (X ray) CMP, Serum 12/12/2019 [place] emd teacher or Plasma [facility] (Labs) (X ray) Referral Psychiatry 12/29/2019 [facility] - Referral Behavioral Healt h Procedures None recorded. Surgeries None recorded. Imaging None recorded. Medications Name Start Date citalopram 20 mg tablet Take 1 tablet every day by oral route. Estarylla 0.25 mg-35 mcg tablet Take 1 tablet every day by oral route. metformin ER 500 mg tablet,extended release 24 hr Take 2 tablets every day by oral route for 30 days. topiramate 25 mg tablet Take 1 tablet every day by oral route. True Metrix Glucose Meter True Metrix Glucose Test Strip USE TO TEST TWICE DAILY DIRECTED. Medications Administered None recorded. Vitals Height Weight BMI Blood Pressure 62 in 156 lbs 28.5 kg/m2 118/84 mm[Hg] Results Lab Results None recorded. Allergies Code Code System Name Reaction Severity Status Onset NKDA Problems Name Status Onset Date Source Uterine Scar from Previous Surgery in Active 12/10/2016 , Childbirth and the Puerperium with Problem History of Migraine Active 12/10/2016 History of Severe Pre-eclampsia Active 12/10/2016 Seizure Active 01/12/2017 Elevated Liver Enzymes Level Active 11/02/2017 Exposure to Tuberculosis Active 12/22/2017 Depression Active 07/11/2018 Depressive Disorder Active 10/18/2018 Candidiasis of Vagina Active 11/07/2019 Type II Diabetes Mellitus Uncontrolled Active 0 Staphylococcal Infection of Skin Active 11/07/2019 Type 2 Diabetes Mellitus Active Migraine Active Encounter Melena Active Encounter Chronic Pelvic Pain of Female Active Syncope Active Fatigue Active External Poor Short-term Memory Active Encounter Hyperglycemia Active External Dark Stools Active Polycystic Ovaries Active Procedures Date Name Performed by 06/22/2017 Caesarean Section Information not avai lable 06/02/2012 Caesarean Section Information not avai lable Vaccine List Vaccine Type influenza, recombinant, quadrIvalent,inj ectable, preservative free 07/11/20180.5 mL Social History Tobacco Smoking Status Current Every Day Smoker Past Encounters 12/12/2019 Type II Diabetes Mellitus Uncontrolled; Depressive Disorder Eulogio Almaguer MD: [address] [place] [address] [address], [place] [address], Ph. History of Present Illness Note: CC uncontrolled DM
hpi pt cont to be non compliant not checking bld sugars
cc requesting referral to psychiatrist
hpi will set up
ros
gen feeling ok
cv bp ok
resp negReview of Systems: ROS as noted in the HPI Review of Systems None recorded. Physical Exam Notes: consult
[2020-02-23] MEDS ORDERED: NA CHLORIDE 0.9% 1,000 ML ONE (12:36)
[2020-02-23] MEDS ORDERED: ONDANSETRON 4 MG/2 ML VIAL ONE (12:36)
[2020-02-23 12:37] LABS: Barbiturates NEGATIVE (NEGATIVE); Benzodiazepines NEGATIVE (NEGATIVE); Cocaine NEGATIVE (NEGATIVE); METHAMPHETAM NEGATIVE (NEGATIVE); Methadone NEGATIVE (NEGATIVE); Opiates NEGATIVE (NEGATIVE); Phencyclidine NEGATIVE (NEGATIVE); THC Cannibis NEGATIVE (NEGATIVE)
[2020-02-23 12:41] LABS: Absolute Lymphocytes (CBC) 2.2 K/uL (0.7-4.9); Basophils % 0.5 % (0-1.3); Hematocrit 33.2 % (36.0-45.0); Lymphocytes % 30.4 % (15.3-44.8); MPV 7.8 fL (7.6-11.3); RBC Red Blood Cell Count 4.08 M/uL (3.86-4.86)
[2020-02-23 12:51] LABS: ALT/SGPT 81 U/L (12-78); AST/SGOT 27 U/L (15-37); Albumin 3.6 g/dL (3.4-5.0); Alkaline Phosphatase 89 U/L (45-117); BUN Blood Urea Nitrogen 12 mg/dL (7-18); Bicarbonate 25 mmol/L (21-32); Bilirubin Direct 0.1 mg/dL (0-0.2); Bilirubin Total 0.3 mg/dL (0.2-1.0); Glucose Level 167 mg/dL (74-106); Lipase 117 U/L (73-393); Potassium 3.7 mmol/L (3.5-5.1); Protein, Total 7.8 g/dL (6.4-8.2); Sodium Level 139 mmol/L (136-145)
[2020-02-23 13:17] LABS: Urine Blood NEGATIVE (NEG); Urine Glucose TRACE (NEG); Urine Protein NEGATIVE (NEG); Urine Specific Gravity 1.015 (1.005-1.030)
--- NOTE | 2020-02-23 13:19 | RAD REPORT ---
EXAM DESCRIPTION: CT - Abdomen Pelvis Wo Contrast - 02/23/2020 1:10 pm CLINICAL HISTORY: FLANK PAIN COMPARISON: No comparisons TECHNIQUE: Axial [address] imaging of the abdomen and pelvis was performed without IV contrast. No IV contrast was given because of allergy, abnormal renal function, patient refusal or physician re quest. No oral contrast. All CT scans are performed using dose optimization technique as appropriate and may include automated exposure control or mA/KV adjustment according to patient size. FINDINGS: No suspicious findings in the lung bases. The liver, spleen and pancreas show no suspicious findings on non-contrast imaging. Gallbladder is co ntracted. No evidence for an acute gallbladder finding. Biliary tree is normal. No hydronephrosis or suspicious renal mass. No obstructing or nonobstructing calculi seen. No signifi cant adrenal finding. Isodense renal masses and pyelonephritis cannot be excluded in the absence of I V contrast. Urinary bladder is only partially filled limiting assessment. No bladder calculi. No mandeep s uterine abnormalities seen. There is also no gross ovarian abnormality seen. Ovaries are mostly iso dense to adjacent bowel loops and limited in assessment. No dilated bowel loops or bowel wall thickening. The appendix is well-visualized and normal. No free air, free fluid or inflammatory stranding. No hernia, mass or bulky lymphadenopathy. Patient has a fe w small mesenteric lymph nodes that are under 1 centimeter. No suspicious bony findings. IMPRESSION: No hydronephrosis, obstructing calculus or acute finding identifiable. Full assessment is limited is the absence of IV contrast. No appendicitis. No abnormality seen that would explain the patient's right back/ flank pain and righ t lower quadrant pain
--- NOTE | 2020-02-23 13:44 | ER ---
Nurse's Notes [facility] Name: Nikole Lopez Age: 29 yrs Sex: Female : 1990 Arrival Date: 02/23/2020 Time: : Bed 17 Private MD: Diagnosis: Unspecified abdominal pain-Flank pain Presentation: 02/22 11:39 Chief complaint: Patient states: R back/flank pain that radiates to the RLQ started sv yesterday. c/o n/v. Risk Assessment: Do you want to hurt yourself or someone else? Patient reports no desire to harm self or others. Onset of symptoms was February 22, 2020. 11:39 Method Of Arrival: Ambulatory sv 11:39 Acuity: DAMIEN 3 sv 11:42 Coronavirus screen: Proceed with normal triage. Patient denies a cough. Patient denies sv shortness of breath or difficulty breathing. Patient denies measured and/or subjective temperature greater than 100.4F prior to today's visit. Patient denies travel on a cruise ship or to a country the [facility] currently lists as an affected area. Patient denies contact with known and/or suspected case of COVID-19. Ebola Screen: No symptoms or risks identified at this time. Initial Sepsis Screen: Does the patient meet any 2 criteria? No. Patient's initial sepsis screen is negative. Does the patient have a suspected source of infection? Yes: Acute abdominal pain. Triage Assessment: 11:44 General: Appears uncomfortable, well developed, Behavior is calm, cooperative, sv appropriate for age. Pain: Complains of pain in right low back, posterior aspect of right lateral abdomen and anterior aspect of right lateral abdomen. Neuro: Level of Consciousness is awake, alert, obeys commands, Gait is steady. Respiratory: Respiratory effort is even, unlabored. GI: Reports nausea, vomiting. 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 - Social history:: Smoking status: Patient reports the use of cigarette tobacco products, smokes 1.5 packs per day. Screenin:05 Abuse screen: Denies threats or abuse. Denies injuries from another. Nutritional ca1 screening: No deficits noted. Tuberculosis screening: No symptoms or risk factors identified. Fall Risk IV access (20 points). Assessment: 12:05 General: Appears in no apparent distress. comfortable, Behavior is calm, cooperative, ca1 appropriate for age. Pain: Complains of pain in right lower quadrant Pain radiates to right low back Pain currently is 9 out of 10 on a pain scale. Quality of pain is described as sharp, Pain began 1 day ago. Is intermittent. Neuro: Level of Consciousness is awake, alert, obeys commands, Oriented to person, place, time, situation. Cardiovascular: Heart tones S1 S2 present Capillary refill < 3 seconds Patient's skin is warm and dry. Respiratory: Airway is patent Respiratory effort is even, unlabored, Respiratory pattern is regular, symmetrical, Breath sounds are clear bilaterally. GI: Abdomen is flat, non-distended, Bowel sounds present X 4 quads. Abd is soft X 4 quads Abdomen is tender to palpation in right lower quadrant Reports nausea, vomiting, yesterday. : No signs and/or symptoms were reported regarding the genitourinary system. EENT: No signs and/or symptoms were reported regarding the EENT system. Derm: Skin is intact, is healthy with good turgor, Skin is pink, warm \T\ dry. Musculoskeletal: Circulation, motion, and sensation intact. Capillary refill < 3 seconds. 12:49 Reassessment: Patient appears in no apparent distress at this time. Patient and/or ca1 family updated on plan of care and expected duration. Pain level reassessed. Patient is alert, oriented x 3, equal unlabored respirations, skin warm/dry/pink. 13:51 Reassessment: Patient appears in no apparent distress at this time. Patient and/or ca1 family updated on plan of care and expected duration. Pain level reassessed. Patient is alert, oriented x 3, equal unlabored respirations, skin warm/dry/pink. Vital Signs: 11:42 BP 107 / 71; Pulse 87; Resp 20; Temp 98.8; Pulse Ox 97% ; Weight 70.31 kg; Height 5 ft. sv 1 in. (154.94 cm); Pain 9/10; 12:49 BP 106 / 63; Pulse 70; Resp 15 S; Pulse Ox 99% on R/A; ca1 13:30 BP 106 / 65; Pulse 70; Resp 16; Pulse Ox 99% on R/A; vc 11:42 Body Mass Index 29.29 (70.31 kg, 154.94 cm) sv ED Course: 11:22 Patient arrived in ED. mr 11:41 Triage completed. sv 11:42 Arm band placed on. sv 11:56 Ruthie Joshi, DILIP is Primary Nurse. ca1 11:57 Chris Eduardo MD is Attending Physician. 7 12:05 Patient has correct armband on for positive identification. Bed in low position. Call ca1 light in reach. Side rails up X 1. Pulse ox on. NIBP on. Warm blanket given. 12:05 Urine collected: clean catch specimen, clear, becky colored, Legal drug screen obtained jp3 per protocol. 12:14 No provider procedures requiring assistance completed. Initial lab(s) drawn, by ky, ca1 sent to lab. Inserted saline lock: 20 gauge in right antecubital area, using aseptic technique. Blood collected. 12:20 Urine Dipstick--Ancillary (enter results) Sent. ca1 12:20 UDS Sent. ca1 13:13 CT Abd/Pelvis - Without Contrast In Process Unspecified. EDMS 14:09 IV discontinued, intact, bleeding controlled, No redness/swelling at site. Pressure vc dressing applied. Administered Medications: 12:22 Drug: NS 0.9% 1000 ml Route: IV; Rate: 1000 ml; Site: right antecubital; ca1 14:00 Follow up: IV Status: Completed infusion; IV Intake: 1000ml vc 12:23 Drug: Zofran (Ondansetron) 4 mg Route: IVP; Site: right antecubital; ca1 14:11 Follow up: Response: No adverse reaction vc Point of Care Testing: Urine : 12:05 hCG Reading: Negative; Control Reading: Positive; jp3 Intake: 14:00 IV: 1000ml; Total: 1000ml. vc Outcome: 13:44 Discharge ordered by . 7 14:08 Discharged to home ambulatory. vc 14:08 Condition: good 14:08 Discharge instructions given to patient, Instructed on discharge instructions, follow up and referral plans. Demonstrated understanding of instructions, follow-up care. 14:12 Patient left the ED. vc Signatures: Dispatcher [employer] Lisa Summers RN RN sv Gregoria Kellogg mr Evelyn Yeison jp3 Ruthie Joshi RN RN ca1 Kathy Osorio RN RN vc Holmes, Maurice, MD MD mh7 Corrections: (The following items were deleted from the chart) 11:45 11:42 Pulse 87bpm; Resp 20bpm; Pulse Ox 97%; Temp 98.8F; 70.31 kg; Height 5 ft. 1 in.; sv BMI: 29.2; Pain 9/10; sv
--- NOTE | 2020-02-23 13:45 | EDPHYS ---
Physician Documentation [facility] Name: Nikole Lopez Age: 29 yrs Sex: Female : 1990 Arrival Date: 02/23/2020 Time: : Bed 17 Private MD: ED Physician Chris Eduardo HPI: 02/22 12:25 This 29 yrs old Female presents to ER via Ambulatory with complaints of Back mh7 Pain, Abdominal Pain. 12:26 The patient presents with abdominal pain right lower quadrant. Onset: The mh7 symptoms/episode began/occurred yesterday. The symptoms radiate to the right flank. Associated signs and symptoms: Pertinent positives: nausea and vomiting, Pertinent negatives: anorexia, blood in stools, chest pain, constipation, diarrhea, dysuria, fever, headache, hematuria, palpitations, shortness of breath, vaginal discharge, vomiting blood. The symptoms are described as intermittent, sharp, waxing/waning. Modifying factors: The symptoms are alleviated by NSAIDs, the symptoms are aggravated by movement. Severity of pain: At its worst the pain was moderate yesterday, in the emergency department the pain has improved moderately. The patient has experienced similar episodes in the past, several times. 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 - Social history:: Smoking status: Patient reports the use of cigarette tobacco products, smokes 1.5 packs per day. ROS: 12:26 Constitutional: Negative for fever, chills, and weight loss, Eyes: Negative for injury, mh7 pain, redness, and discharge, ENT: Negative for injury, pain, and discharge, Neck: Negative for injury, pain, and swelling, Cardiovascular: Negative for chest pain, palpitations, and edema, Respiratory: Negative for shortness of breath, cough, wheezing, and pleuritic chest pain, : Negative for injury, bleeding, discharge, and swelling, MS/Extremity: Negative for injury and deformity, Skin: Negative for injury, rash, and discoloration, Neuro: Negative for headache, weakness, numbness, tingling, and seizure, Psych: Negative for depression, anxiety, suicide ideation, homicidal ideation, and hallucinations, Allergy/Immunology: Negative for hives, rash, and allergies, Endocrine: Negative for neck swelling, polydipsia, polyuria, polyphagia, and marked weight changes, Hematologic/Lymphatic: Negative for swollen nodes, abnormal bleeding, and unusual bruising. Exam: 12:26 Constitutional: This is a well developed, well nourished patient who is awake, alert, mh7 and in no acute distress. Head/Face: Normocephalic, atraumatic. Eyes: Pupils equal round and reactive to light, extra-ocular motions intact. Lids and lashes normal. Conjunctiva and sclera are non-icteric and not injected. Cornea within normal limits. Periorbital areas with no swelling, redness, or edema. ENT: Nares patent. No nasal discharge, no septal abnormalities noted. Tympanic membranes are normal and external auditory canals are clear. Oropharynx with no redness, swelling, or masses, exudates, or evidence of obstruction, uvula midline. Mucous membranes moist. Neck: Trachea midline, no thyromegaly or masses palpated, and no cervical lymphadenopathy. Supple, full range of motion without nuchal rigidity, or vertebral point tenderness. No Meningismus. Chest/axilla: Normal chest wall appearance and motion. Nontender with no deformity. No lesions are appreciated. Cardiovascular: Regular rate and rhythm with a normal S1 and S2. No gallops, murmurs, or rubs. Normal PMI, no JVD. No pulse deficits. Respiratory: Lungs have equal breath sounds bilaterally, clear to auscultation and percussion. No rales, rhonchi or wheezes noted. No increased work of breathing, no retractions or nasal flaring. 12:26 Skin: Warm, dry with normal turgor. Normal color with no rashes, no lesions, and no evidence of cellulitis. MS/ Extremity: Pulses equal, no cyanosis. Neurovascular intact. Full, normal range of motion. Neuro: Awake and alert, GCS 15, oriented to person, place, time, and situation. Cranial nerves II-XII grossly intact. Motor strength 5/5 in all extremities. Sensory grossly intact. Cerebellar exam normal. Normal gait. Psych: Awake, alert, with orientation to person, place and time. Behavior, mood, and affect are within normal limits. 12:26 Abdomen/GI: Inspection: abdomen appears normal, Bowel sounds: normal, in all quadrants, Palpation: mild abdominal tenderness, in the right lower quadrant, Rectal exam: the exam is deferred, because of patient request, Indicators: McBurney's point is not tender, Lan's sign is negative, Rovsing's sign is negative, Obturator sign is negative, Psoas sign is negative, Liver: no appreciated palpable abnormalities, Hernia: not appreciated. 12:26 Back: pain, that is moderate, ROM is painful, normal spinal alignment noted, CVA tenderness, that is moderate, is noted on the right, muscle spasm, is not present, Straight leg raises: of both lower extremities does not illicit pain. 12:26 : CVA tenderness, on the right, Pelvic Exam: The exam is refused by the patient/guardian. The risks and consequences are understood by the patient, Bladder: is normal, Rectal exam: is refused by patient or guardian. Vital Signs: 11:42 BP 107 / 71; Pulse 87; Resp 20; Temp 98.8; Pulse Ox 97% ; Weight 70.31 kg; Height 5 ft. sv 1 in. (154.94 cm); Pain 9/10; 12:49 BP 106 / 63; Pulse 70; Resp 15 S; Pulse Ox 99% on R/A; ca1 13:30 BP 106 / 65; Pulse 70; Resp 16; Pulse Ox 99% on R/A; vc 11:42 Body Mass Index 29.29 (70.31 kg, 154.94 cm) sv MDM: 12:06 Patient medically screened. 7 13:41 Differential diagnosis: appendicitis, cholecystitis, Cholelithiasis, diverticulitis, mh7 Ectopic , non-specific abd pain, Ureterolithiasis, urinary tract infection. Data reviewed: vital signs, nurses notes, lab test result(s), radiologic studies, CT scan. 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 Interpretation: normal. 02/23 07:24 ED course: Feels better, NAD, VSS. No abdominal pain/tenderness, nausea, vomiting, or mh7 other complaints. Tolerating oral intake without difficulty. Discussed all test results and findings with the patient and answered all of her questions. She requested to be discharged from the ED. She will follow up with her doctor but will return to the ED if worsening of symptoms or other concerns.. 02/22 12:08 Order name: Basic Metabolic Panel; Complete Time: 13:33 mh7 02/22 12:08 Order name: CBC with Diff; Complete Time: 13:33 mh7 02/22 12:08 Order name: Hepatic Function; Complete Time: 13:33 mh7 02/22 12:08 Order name: Lipase; Complete Time: 13:33 mh7 02/22 12:08 Order name: UDS; Complete Time: 13:33 mh7 02/22 12:08 Order name: IV Saline Lock; Complete Time: 12:20 mh7 02/22 12:08 Order name: Labs collected and sent; Complete Time: 12:20 7 02/22 12:08 Order name: Urine Test (obtain specimen); Complete Time: 12:20 mh7 02/22 12:15 Order name: Urine Dipstick--Ancillary (enter results); Complete Time: 13:33 tt3 02/22 12:15 Order name: Urine --Ancillary (enter results); Complete Time: 13:33 tt3 02/22 12:16 Order name: CT Abd/Pelvis - Without Contrast; Complete Time: 13:33 mh7 Administered Medications: 02/22 12:22 Drug: NS 0.9% 1000 ml Route: IV; Rate: 1000 ml; Site: right antecubital; ca1 14:00 Follow up: IV Status: Completed infusion; IV Intake: 1000ml vc 12:23 Drug: Zofran (Ondansetron) 4 mg Route: IVP; Site: right antecubital; ca1 14:11 Follow up: Response: No adverse reaction vc Point of Care Testing: Urine : 12:05 hCG Reading: Negative; Control Reading: Positive; jp3 Disposition: 02/23/20 13:44 Discharged to Home. Impression: Unspecified abdominal pain - Flank pain. - Condition is Stable. - Discharge Instructions: Abdominal Pain, Adult, Flank Pain, Adult. - Medication Reconciliation Form, Thank You Letter, Antibiotic Education, Prescription Opioid Use form. - Follow up: Private Physician; When: 1 - 2 days; Reason: Worsening of condition, Re-evaluation by your physician. - Problem is an acute exacerbation. - Symptoms are resolved. Signatures: Dispatcher [employer] [facility] Lisa Fair, RN RN Ruthie Win RN RN ca1 Kathy Osorio RN RN vc Holmes, Maurice, MD MD mh7 Corrections: (The following items were deleted from the chart) 12:21 12:09 URINALYSIS+[id number].LAB.BRZ ordered. [facility] 14:12 13:44 02/23/2020 13:44 Discharged to Home. Impression: Unspecified abdominal pain - vc Flank pain. Condition is Stable. Forms are Medication Reconciliation Form, Thank You Letter, Antibiotic Education, Prescription Opioid Use. Follow up: Private Physician; When: 1 - 2 days; Reason: Worsening of condition, Re-evaluation by your physician. Problem is an acute exacerbation. Symptoms are resolved. mh7
[2020-02-23 14:47] VITALS: TEMP 98.8
[2020-02-23 14:51] VITALS: O2SAT 99
[2020-02-23 15:03] VITALS: BP 106/65
== END 2020-02-23 14:12 | disposition home or self-care (01) ==
LOC: ER 11:18
DX: R10.31 Right lower quadrant pain (principal); E11.9 Type 2 diabetes mellitus without complications; Z88.5 Allergy status to narcotic agent
CPT/HCPCS: 96361; 85025; 80048; 36415; 81025; 80076; 80307 ×8; 81003; 83690; 74176; 96374; 99284; J7030; J2405